=== PATIENT | female | born 1970 | race Caucasian/White ===

== ENCOUNTER 2021-11-13 23:40 | Inpatient (IN) | payer SELFPAY ==
[2021-11-14 00:12] LABS: #Basophils 0.1 thou/uL (0.0-0.2); #Eosinphils 0.2 thou/uL (0.0-0.7); #Lymphocytes 1.6 thou/uL (1.20-3.40); #Neutrophils 12.3 thou/uL (1.40-6.50); %Basophils 0.4 % (0.0-1.0); %Eosinophils 1.1 % (0.0-10.0); %Lymphocytes 10.6 % (21.0-51.0); %Monocytes 6.6 % (0.0-10.0); %Neutrophils 81.4 % (42.0-75.0); Hemoglobin 13.5 g/dL (12.0-16.0); Mean Corpuscular HGB CONC 31.7 g/dL (32.0-36.0); Mean Corpuscular Hemoglobin 25.7 pg (27.0-31.0); Mean Platelet Volume 8.2 fL (7.4-10.4); Platelet Count 290 thou/uL (130-400); RBC Distribution Width 16.5 % (11.5-14.5); Red Blood Cell (RBC) Count 5.25 mill/uL (4.20-5.40); White Blood Cell (WBC) Count 15.1 thou/uL (4.8-10.8)
[2021-11-14 00:33] LABS: ALT (SGPT) 36 U/L (8-55); AST (SGOT) 37 U/L (5-34); Albumin 4.3 g/dL (3.5-5.0); Alkaline Phosphatase 114 U/L (40-110); Anion Gap 14 mmol/L (10-20); BUN (Urea Nitrogen) 14 mg/dL (7.0-18.7); Bilirubin, Total 0.3 mg/dL (0.2-1.2); Calc. Creatinine Clearance 0 mL/min (70-130); Calcium 9.5 mg/dL (7.8-10.44); Carbon Dioxide 23 mmol/L (22-29); Chloride 101 mmol/L (98-107); Globulin 3.8 g/dL (2.4-3.5); Glucose 180 mg/dL (70-105); Lipase 19 U/L (8-78); Potassium 3.8 mmol/L (3.5-5.1); Protein, Total 8.1 g/dL (6.0-8.3); Sodium 134 mmol/L (136-145)
[2021-11-14 01:33] LABS: Bilirubin Negative (Negative); Blood, Urine Negative (Negative); Clarity Clear (Clear); Glucose, Urine (Dipstick) Normal (Negative); Ketone, Urine Negative (Negative); Leukocyte Negative Leu/uL (Negative); Nitrite Negative (Negative); Protein, Urine (Dipstick) Negative (Neg-Trace); Specific Gravity, Urine 1.021 (1.002-1.036); Urobilinogen Normal mg/dL (Less than 2); pH, Urine 5.5 (5.0-9.0)
[2021-11-14 03:47] VITALS: BMI 37.0
[2021-11-14] MEDS ORDERED: Morphine 4 MG/ML VIAL SLOW IVP PRN ×3 (04:07→07:39)
[2021-11-14] MEDS ORDERED: Piperacillin/Tazobactam 3.375 GM in Sodium Chloride 0.9% 100 ML IVPB SCH ×3 (04:15→16:00)
[2021-11-14] MEDS ORDERED: Acetaminophen 325 MG TAB PO PRN (04:15)
[2021-11-14] MEDS ORDERED: Ondansetron ODT 4 MG TAB SL PRN (04:15)
[2021-11-14] MEDS ORDERED: Ondansetron PF 4 MG/2 ML Vial IVP PRN (04:15)
[2021-11-14] MEDS ORDERED: Sodium Chloride 0.9% 1,000 ML IV SCH ×2 (04:45→07:45)
[2021-11-14 05:05] LABS: SARS-CoV-2 NAA Rapid Test Not Detected (NotDetected)
[2021-11-14] MEDS ORDERED: hydrALAZINE 20 MG/ML VIAL SLOW IVP PRN (07:39)
[2021-11-14] MEDS ORDERED: Dextrose 50% Abboject 50 ML SYRINGE SLOW IVP PRN (07:39)
[2021-11-14] MEDS ORDERED: Lorazepam 2 MG/ML VIAL SLOW IVP PRN (07:39)
[2021-11-14] MEDS ORDERED: traMADol HCl 50 MG TAB PO PRN ×2 (07:39→14:44)
[2021-11-14] MEDS ORDERED: Dextrose 5% in Water 1,000 ML IV PRN (07:39)
[2021-11-14] MEDS ORDERED: Ketorolac Tromethamine 30 MG/ML VIAL IVP SCH (07:45)
[2021-11-14] MEDS ORDERED: Xylocaine 1% w/ Epi 1:100K 10 ML VIAL ONE (12:58)
[2021-11-14] MEDS ORDERED: Bupivacaine PF 0.5% 30 ML VIAL ONE (12:58)
[2021-11-14] MEDS ORDERED: Fentanyl 250 MCG/5 ML VIAL ONE (13:04)
[2021-11-14] MEDS ORDERED: Midazolam HCl 2 mg/2 ml Vial ONE (13:04)
[2021-11-14] MEDS ORDERED: Glycopyrrolate 0.2 MG/ML 5 ML SYRINGE ONE (13:32)
[2021-11-14] MEDS ORDERED: PHENYLEPHRINE-NS 100 MCG/ML 10 ML SYRINGE ONE (13:32)
[2021-11-14] MEDS ORDERED: Rocuronium Bromide 10 MG/ML (10ML VIAL) ONE (13:32)
[2021-11-14] MEDS ORDERED: Ketorolac Tromethamine 30 MG/ML VIAL ONE (13:32)
[2021-11-14] MEDS ORDERED: Ondansetron PF 4 MG/2 ML Vial ONE (13:32)
[2021-11-14] MEDS ORDERED: Labetalol HCl 100 MG/20 ML VIAL ONE (13:32)
[2021-11-14] MEDS ORDERED: Lidocaine 1% PF 5 ML VIAL ONE (13:32)
[2021-11-14] MEDS ORDERED: PROPOFOL 200 MG/20 ML VIAL ONE (13:32)
[2021-11-14] MEDS ORDERED: Succinylcholine 200 MG/10 ml SYRINGE FS ONE (13:32)
[2021-11-14] MEDS ORDERED: ePHEDrine 50 MG/ML VIAL ONE (13:32)
[2021-11-14] MEDS ORDERED: Piperacillin/Tazobactam 3.375 GM VIAL ONE (13:38)
[2021-11-14] MEDS ORDERED: Ketorolac Tromethamine 30 MG/ML VIAL IVP PRN (14:00)
[2021-11-14] MEDS ORDERED: Acetaminophen 500 MG TAB PO PRN (14:44)
[2021-11-14] MEDS ORDERED: Ibuprofen 600 MG TAB PO PRN (14:44)
[2021-11-14] MEDS ORDERED: Insulin Regular 300 UNITS/3 ML VIAL SC PRN (14:45)
[2021-11-14] MEDS ORDERED: Promethazine HCl 25 MG/ML VIAL IM PRN (14:47)
[2021-11-14] MEDS ORDERED: Promethazine HCl 25 MG/ML VIAL IVPB PRN (14:47)
[2021-11-14] MEDS ORDERED: Ondansetron HCl/PF 4 MG/2 ML Vial IVP PRN (14:47)
[2021-11-14] MEDS: Ferrous Sulfate 325 MG TAB PO SCH (20:54)
[2021-11-14] MEDS ORDERED: Enoxaparin Sodium 40 MG/0.4 ML SYRINGE SC SCH (21:00)
[2021-11-14] MEDS: HumaLOG 300 UNITS/3 ML VIAL SC PRN (22:47)
[2021-11-15] MEDS: HumaLOG 300 UNITS/3 ML VIAL SC PRN (05:58)
[2021-11-15 08:00] LABS: #Basophils 0.1 thou/uL (0.0-0.2); #Eosinphils 0.2 thou/uL (0.0-0.7); #Lymphocytes 1.4 thou/uL (1.20-3.40); #Monocytes 0.6 thou/uL (0.11-0.59); #Neutrophils 3.8 thou/uL (1.40-6.50); %Basophils 0.8 % (0.0-1.0); %Lymphocytes 23.2 % (21.0-51.0); %Monocytes 9.6 % (0.0-10.0); %Neutrophils 62.4 % (42.0-75.0); Hemoglobin 12.6 g/dL (12.0-16.0); Mean Corpuscular Hemoglobin 25.8 pg (27.0-31.0); Mean Corpuscular Volume 83.4 fL (78.0-98.0); Platelet Count 242 thou/uL (130-400); RBC Distribution Width 16.3 % (11.5-14.5); Red Blood Cell (RBC) Count 4.87 mill/uL (4.20-5.40)
[2021-11-15 08:21] LABS: ALT (SGPT) 64 U/L (8-55); AST (SGOT) 67 U/L (5-34); Albumin 3.8 g/dL (3.5-5.0); Alkaline Phosphatase 216 U/L (40-110); Anion Gap 14 mmol/L (10-20); BUN (Urea Nitrogen) 10 mg/dL (7.0-18.7); Bilirubin, Total 0.7 mg/dL (0.2-1.2); Calc. Creatinine Clearance 117 mL/min (70-130); Calcium 8.8 mg/dL (7.8-10.44); Carbon Dioxide 23 mmol/L (22-29); Chloride 99 mmol/L (98-107); Globulin 3.2 g/dL (2.4-3.5); Glucose 293 mg/dL (70-105); Potassium 3.8 mmol/L (3.5-5.1); Sodium 132 mmol/L (136-145)
[2021-11-15 08:32] VITALS: BP 134/84; TEMP 97
[2021-11-15] MEDS: Ferrous Sulfate 325 MG TAB PO SCH (08:51)
[2021-11-15] MEDS ORDERED: CRANBERRY 400 MG PO SCH (09:00)
== END 2021-11-15 09:30 | disposition home or self-care (01) | DRG 343 ==
LOC: ERS 23:40 → SURG A 11-14 02:33
PROVIDERS: ADMIT Specialist; ATTEND Specialist
PROC: 0DTJ4ZZ Resection of Appendix, Percutaneous Endoscopic Approach (ICD-10-PCS; principal; 2021-11-14)
DX: K35.80 Unspecified acute appendicitis (principal); F17.210 Nicotine dependence, cigarettes, uncomplicated; E11.9 Type 2 diabetes mellitus without complications; N85.2 Hypertrophy of uterus; K66.0 Peritoneal adhesions (postprocedural) (postinfection); D25.9 Leiomyoma of uterus, unspecified; Z20.822 Contact with and (suspected) exposure to COVID-19; I10 Essential (primary) hypertension; Z79.4 Long term (current) use of insulin; Z88.2 Allergy status to sulfonamides; Z90.49 Acquired absence of other specified parts of digestive tract
CPT/HCPCS: 36415; 36416; 74176; 80053; 81003; 83690; 85025; 86301; 86304; 88304; 90471; 90732; A4649; G0009; J1650; J1815; J1885; J2250; J2270; J2405; J2543; J2704; J3010; J3490; J7050; S0020; U0002